=== PATIENT | male | born 1985 | race Asian ===

== ENCOUNTER 2017-10-06 19:18 | Observation (INO) | payer MEDICAID ==
[2017-10-06] MEDS ORDERED: ONDANSETRON 4 MG/2 ML VIAL IVP STA (19:32)
[2017-10-06] MEDS ORDERED: SODIUM CHLORIDE 0.9% 1,000 ML IV ONE ×4 (19:32→22:52)
[2017-10-06 19:48] LABS: BASOPHILS % (AUTO) 1.7 %; EOSINOPHILS % (AUTO) 1.1 %; HGB - HEMOGLOBIN 17.4 g/dL (14.0-18.0); LYMPHOCYTES % (AUTO) 2.6 %; MEAN CORPUSCULAR HEMOGLOBIN 30.2 pg (27.0-31.0); MEAN CORPUSCULAR HGB CONC 33.9 g/dL (32.0-36.0); MEAN PLATELET VOLUME 7.1 fL (7.4-11.4); MONOCYTES % (AUTO) 2.7 %; NEUTROPHILS % (AUTO) 91.9 %; PLT - PLATELET COUNT 294 10^3/uL (130-450); RED BLOOD COUNT 5.76 10^6/uL (4.70-6.10); RED CELL DISTRIBUTION WIDTH 11.9 % (12.0-15.0); WHITE BLOOD COUNT 17.1 x10^3/uL (4.8-10.8)
[2017-10-06 19:51] LABS: VBG BASE EXCESS -3.1 mmol/L (-2 - +2); VBG PCO2 33.9 mmHg (41-51); VBG PH 7.4 (7.31-7.41); VBG PO2 40.8 mmHg (25-47); VBG TOTAL CO2 21.6 mmol/L (24-29)
[2017-10-06 19:56] LABS: KETONES, SERUM (ACETEST) NEGATIVE (NEGATIVE)
[2017-10-06 20:02] LABS: ALBUMIN 4.7 g/dL (3.2-5.5); ALBUMIN/GLOBULIN RATIO 1.5 (1.0-2.2); ALKALINE PHOSPHATASE 103 IU/L (42-121); ALT ALANINE AMINOTRANSFERASE 20 IU/L (10-60); AST ASPARTATE AMINOTRANSFERASE 32 IU/L (10-42); BUN - BLOOD UREA NITROGEN 16 mg/dL (6-20); CALCIUM 9.1 mg/dL (8.5-10.3); CARBON DIOXIDE - CO2 22 mmol/L (21-32); CHLORIDE 100 mmol/L (101-111); CREATININE 0.9 mg/dL (0.6-1.2); GFR - MDRD 99 (>89); GLUCOSE 225 mg/dL (70-100); LIPASE 20 U/L (22-51); SODIUM 135 mmol/L (135-145); TOTAL PROTEIN 7.8 g/dL (6.7-8.2)
[2017-10-06] MEDS ORDERED: MORPHINE 2 MG/ML SYRINGE IVP STA (20:05)
[2017-10-06 20:07] LABS: ABNORMAL LYMPHS % (MANUAL) 0 %
[2017-10-06] MEDS ORDERED: SUCRALFATE 1 GM/10 ML UDC PO STA (20:12)
[2017-10-06] MEDS ORDERED: PHENobarb/HYOSCY/ATROPINE/SCOP 5 ML UDC PO STA (20:12)
[2017-10-06] MEDS ORDERED: FAMOTIDINE 20 MG/50 ML 50 ML IV ONE (20:12)
[2017-10-06] MEDS ORDERED: LIDOCAINE VISCOUS 2% 15 ML UDC MM STA (20:12)
[2017-10-06] MEDS ORDERED: MAG HYDROX/AL HYDROX/SIMETH 30 ML UDC PO STA (20:12)
[2017-10-06 20:14] LABS: BAND NEUTROPHILS % (MANUAL) 9 %; EOSINOPHILS # (MANUAL) 0.5 10^3/uL (0-0.7); LYMPHOCYTES # (MANUAL) 0.9 10^3/uL (1.5-3.5); LYMPHOCYTES % (MANUAL) 1 %; NEUTROPHILS # (MANUAL) 14.7 10^3/uL (1.5-6.6); NEUTROPHILS % (MANUAL) 77 %
[2017-10-06 20:16] LABS: PLATELET ESTIMATE, MANUAL NORMAL (130-450,000) (NORMAL); PLATELET MORPHOLOGY NORMAL APPEARANCE (NORMAL); RBC MORPHOLOGY (MULTIPLE) NORMAL APPEARANCE (NORMAL)
[2017-10-06 21:12] LABS: BILIRUBIN,URINE NEGATIVE (NEGATIVE); GLUCOSE, URINE (UA) NEGATIVE (NEGATIVE); KETONES,URINE (UA) >=80 mg/dL (NEGATIVE); LEUKOCYTE ESTERASE, URINE NEGATIVE (NEGATIVE); NITRITE,URINE NEGATIVE (NEGATIVE); OCCULT BLOOD,URINE NEGATIVE (NEGATIVE); PROTEIN,URINE NEGATIVE (NEGATIVE); UROBILINOGEN,URINE 0.2 (NORMAL) E.U./dL (NORMAL)
[2017-10-06 21:16] LABS: CLARITY,URINE CLEAR (CLEAR)
[2017-10-06] MEDS ORDERED: PROMETHAZINE INJ 25 MG in SODIUM CHLORIDE 0.9% 50 ML IV STA (21:37)
--- NOTE | 2017-10-06 22:52 | ED Physician Documentation ---
History of Present Illness - Stated complaint Stated Complaint: NAUSEA/VOMITING - Chief complaint Chief Complaint: Abd Pain - History obtained from History obtained from: Patient, Family - History of Present Illness Timing: Today Pain level max: 6 Pain level now: 6 Improved by: milanfrara Worsened by: eating - Additonal information Additional information: Patient is a 32-year-old male who presents to the emergency department with Vomiting today. Did not eat anything out of the ordinary yesterday. Had some diarrhea earlier. He is a type I diabetic. Insulin-dependent. No fevers. No blood in the vomit or diarrhea. No recent travel. No antibiotics. Review of Systems Ten Systems: 10 systems reviewed and negative Constitutional: denies: Fever, Chills Ears: denies: Ear pain Nose: denies: Rhinorrhea / runny nose, Congestion Throat: denies: Sore throat Cardiac: denies: Chest pain / pressure Respiratory: denies: Cough GI: reports: Abdominal Pain (epigastric, aching), Nausea, Vomiting, Diarrhea. denies: Hematemesis, Bloody / black stool Skin: denies: Rash Musculoskeletal: denies: Neck pain, Back pain Neurologic: denies: Headache PD PAST MEDICAL HISTORY - Past Medical History Past Medical History: Yes Endocrine/Autoimmune: Type 1 diabetes Psych: Depression, Anxiety - Past Surgical History Past Surgical History: No - Present Medications Home Medications: Ambulatory Orders Medication Instructions Recorded Confirmed Insulin Aspart [Novolog Flexpen] 0 unit SUBQ ACHS 10/06/17 10/06/17 Insulin Glargine [Lantus Solostar] 6 units SQ DAILY 10/06/17 - Allergies Allergies/Adverse Reactions: Allergies Allergy/AdvReac Type Severity Reaction Status Date / Time No Known Drug Allergies Allergy Verified 10/06/17 19:22 - Social History Does the pt smoke?: No Smoking Status: Never smoker Does the pt drink ETOH?: No Does the pt have substance abuse?: No - Immunizations Immunizations are current?: Yes - POLST Patient has POLST: No PD ED PE NORMAL - Vitals Vital signs reviewed: Yes - General General: Alert and oriented X 3, No acute distress - HEENT HEENT: PERRL, Other (dry lips and tongue) - Neck Neck: Supple, no meningeal sign - Cardiac Cardiac: RRR - Respiratory Respiratory: No respiratory distress, Clear bilaterally - Abdomen Abdomen: Soft, Non distended, Other (Mild tenderness palpation epigastric without peritoneal signs.) - Back Back: No CVA TTP, No spinal TTP - Derm Derm: Warm and dry, No rash - Extremities Extremities: No edema, No calf tenderness / cord - Neuro Neuro: Alert and oriented X 3 - Psych Psych: Normal mood, Normal affect Results - Vitals Vitals: Vital Signs - 24 hr 10/06/17 10/06/17 10/06/17 19:20 21:33 23:02 Temperature 36.5 C 37.0 C 36.8 C Heart Rate 100 86 96 Respiratory 16 18 16 Rate Blood Pressure 116/77 100/69 109/73 O2 Saturation 100 98 97 Oxygen O2 Source Room air - Labs Labs: Laboratory Tests 10/06/17 10/06/17 10/06/17 19:28 19:32 19:32 WBC 17.1 H RBC 5.76 Hgb 17.4 Hct 51.2 MCV 89.0 MCH 30.2 MCHC 33.9 RDW 11.9 L Plt Count 294 MPV 7.1 L Neut # Not Reportable Lymph # Not Reportable Lucas # Not Reportable Eos # Not Reportable Baso # Not Reportable Absolute Nucleated RBC Not Reportable Total Counted 100 Band Neuts % (Manual) 9 Reactive Lymphs % (Man) 4 Abnorm Lymph % (Manual) 0 Nucleated RBC % Not Reportable Neutrophils # (Manual) 14.7 H Lymphocytes # (Manual) 0.9 L Monocytes # (Manual) 1.0 Eosinophils # (Manual) 0.5 Basophils # (Manual) 0.0 Manual Slide Review Indicated Platelet Estimate NORMAL (130-450,000) Platelet Morphology NORMAL APPEARANCE RBC Morph Micro Appear NORMAL APPEARANCE VBG pH VBG pCO2 VBG pO2 VBG HCO3 VBG Total CO2 VBG O2 Saturation VBG Base Excess Sodium 135 Potassium 3.8 Chloride 100 L Carbon Dioxide 22 Anion Gap 13.0 BUN 16 Creatinine 0.9 Estimated GFR (MDRD) 99 Glucose 225 H POC Whole Bld Glucose 221 H Calcium 9.1 Total Bilirubin 1.0 AST 32 ALT 20 Alkaline Phosphatase 103 Total Protein 7.8 Albumin 4.7 Globulin 3.1 Albumin/Globulin Ratio 1.5 Lipase 20 L Urine Color Urine Clarity Urine pH Ur Specific [place] Urine Protein Urine Glucose (UA) Urine Ketones Urine Occult Blood Urine Nitrite Urine Bilirubin Urine Urobilinogen Ur Leukocyte Esterase Ur Microscopic Review Urine Culture Comments Serum Ketones NEGATIVE 10/06/17 10/06/17 10/06/17 19:40 21:00 22:58 WBC RBC Hgb Hct MCV MCH MCHC RDW Plt Count MPV Neut # Lymph # Lucas # Eos # Baso # Absolute Nucleated RBC Total Counted Band Neuts % (Manual) Reactive Lymphs % (Man) Abnorm Lymph % (Manual) Nucleated RBC % Neutrophils # (Manual) Lymphocytes # (Manual) Monocytes # (Manual) Eosinophils # (Manual) Basophils # (Manual) Manual Slide Review Platelet Estimate Platelet Morphology RBC Morph Micro Appear VBG pH 7.400 VBG pCO2 33.9 L VBG pO2 40.8 VBG HCO3 20.5 L VBG Total CO2 21.6 L VBG O2 Saturation 82.2 H VBG Base Excess -3.1 L Sodium Potassium Chloride Carbon Dioxide Anion Gap BUN Creatinine Estimated GFR (MDRD) Glucose POC Whole Bld Glucose 160 H Calcium Total Bilirubin AST ALT Alkaline Phosphatase Total Protein Albumin Globulin Albumin/Globulin Ratio Lipase Urine Color YELLOW Urine Clarity CLEAR Urine pH 5.0 Ur Specific [place] >=1.030 H Urine Protein NEGATIVE Urine Glucose (UA) NEGATIVE Urine Ketones >=80 H Urine Occult Blood NEGATIVE Urine Nitrite NEGATIVE Urine Bilirubin NEGATIVE Urine Urobilinogen 0.2 (NORMAL) Ur Leukocyte Esterase NEGATIVE Ur Microscopic Review NOT INDICATED Urine Culture Comments NOT INDICATED Serum Ketones PD MEDICAL DECISION MAKING - ED course Complexity details: reviewed results, re-evaluated patient, considered differential, d/w patient, d/w family ED course: Patient is a 32-year-old male, type I diabetic who presents to the emergency department with vomiting and diarrhea today. Diarrhea has since resolved with the vomiting has continued. Possible gastroparesis? Given Zofran, IV fluids and unable to tolerate p.o. Was then given Phenergan IV and still unable to tolerate p.o. Will place the patient in observation for hydration and reevaluation throughout the night. Discussed the case with Dr. Farmer, hospitalist who accepts. This document was made in part using voice recognition software. While efforts are made to proofread this document, sound alike and grammatical errors may occur. Departure - Departure Disposition: ED Place in Observation Clinical Impression: Hyperglycemia due to type 1 diabetes mellitus Vomiting Qualifiers: Vomiting type: unspecified Vomiting Intractability: intractable Nausea presence : with nausea Qualified Code(s): R11.2 - Nausea with vomiting, unspecified Condition: Stable
[2017-10-06] MEDS ORDERED: METOCLOPRAMIDE 10 MG/2 ML VIAL IVP STA (23:44)
[2017-10-07 00:06] LABS: HB2 TOTAL 19.7 g/dL; HEMOGLOBIN A1C 0.69 g/dL; HEMOGLOBIN A1C % 5.4 % (4.6-6.2)
[2017-10-07] MEDS: INSULIN GLARGINE 300 UNIT/3 ML PEN SUBQ SCH ×2 (00:38→21:16)
--- NOTE | 2017-10-07 00:46 | HISTORY & PHYSICAL EXAMINATION ---
Chief Complaint - Chief Complaint Chief Complaint: Intractable nausea and vomiting History of Present Illness - Admitted From Admitted From:: home - History Obtained From History obtained from: patient, pt's mother, Ed physician - History of Present Illness HPI Comment/Other: Mr. Dell Izaguirre is a very pleasant 32-year-old gentleman who unfortunately has a history of insulin-dependent diabetes which began about 18 months ago. He has been having intractable nausea and vomiting all day and his mother, who is an intensive care nurse here at the hospital, became concerned and brought him into the emergency department. He has been given fluids and anti-emetics but still has intractable nausea and vomiting and so will be admitted to an observation bed, placed on prokinetic agents for presumed diabetic gastroparesis , and we will replace his fluids and electrolytes. History - Past Medical History Endocrine/Autoimmune: reports: Type 1 diabetes Psych: reports: Depression, Anxiety MRSA Hx?: No - Family & Social History Family History: Mother: Alive and Well, Father: Alive and Well, Other family: (GF suicide age 39), CAD, Hyperlipidemia, Hypertension, [place] Living arrangement: At home Living Situation: With family - Substance History Use: Uses substance without health or social issues: NONE Abuse: Recurrent use of substance despite neg consequences: NONE Dependence: Experiences withdrawal or developed tolerances: NONE - POLST Patient has POLST: No POLST Status: Full Code Meds/Allgy - Home Medications Home Medications: Ambulatory Orders Medication Instructions Recorded Confirmed Insulin Aspart [Novolog Flexpen] 0 unit SUBQ ACHS 10/06/17 10/06/17 Insulin Glargine [Lantus Solostar] 6 units SQ DAILY 10/06/17 - Allergies Allergies/Adverse Reactions: Allergies Allergy/AdvReac Type Severity Reaction Status Date / Time No Known Drug Allergies Allergy Verified 10/06/17 19:22 Review of Systems - Constitutional Constitutional: reports: Fatigue, Malaise, Weakness. denies: Fever, Chills - Eyes Eyes: denies: Pain, Amaurosis, Blurred vision, Vision loss, Dipolpia - Ears, Nose & Throat Ears, Nose & Throat: denies: Ear pain, Tinnitus, Vertigo, Nasal discharge, Nosebleeds - Cardiovascular Cariovascular: denies: Irregular heart rate, Palpitations, Chest pain, Edema, Syncope - Respiratory Respiratory: denies: Cough, Sputum production, Wheezing, Snoring, Hemoptysis, Orthopnea - Gastrointestinal Gastrointestinal: reports: Abdominal pain, Diarrhea, Nausea, Vomiting. denies: Rectal bleeding, Matt blood emesis - Genitourinary Genitourinary: denies: Dysuria, Frequency, Urgency, Hematuria - Musculoskeletal Musculoskeletal: denies: Muscle pain, Back pain, Muscle aches, Stiffness - Integumentary Integumentary: denies: Rash, Pruritis, Lesions, Dryness - Neurological Neurological: reports: General weakness. denies: Focal weakness, Headache, Dizziness - Psychiatric Psychiatric: reports: Depression, Anxiety. denies: Suicidal, Delusions, Hallucinations, Homicidal - Endocrine Endocrine: denies: Polyuria, Polydypsia, Polyphagia - Hematologic/Lymphatic Hematologic/Lymphatic: denies: Anemia, Bruising, Petechiae, Bleeding tendencies - All Other Systems All Other Systems: reports: Reviewed and negative Exam - Vital Signs Reviewed Vital Signs: Yes - Physical Exam General Appearance: positive: Alert, Mild distress Eyes Bilateral: positive: Normal inspection, PERRL, EOMI, No lid inflammation, Conjunctivae nml, No scleral icterus ENT: positive: ENT inspection nml, Pharynx nml, No signs of dehydration Neck: positive: Nml inspection, Thyroid nml, No JVD, Trachea midline. negative : Thyromegaly Respiratory: positive: Chest non-tender, No respiratory distress, Breath sounds nml. negative: Wheezes, Rales, Rhonchi Cardiovascular: positive: Regular rate & rhythm, No murmur, No gallop Peripheral Pulses: positive: 2+ Abdomen: positive: No organomegaly, Nml bowel sounds, No distention, Tenderness. negative: Guarding, Rebound, Mass Back: positive: Nml inspection. negative: CVA tenderness (R), CVA tenderness (L ) Skin: positive: Color nml, No rash, Warm, Dry. negative: Cyanosis Extremities: positive: Non-tender, Full ROM, Nml appearance Neurologic/Psychiatric: positive: Oriented x3, CN's nml (2-12), Motor nml, Sensation nml, Mood/affect nml Conclusion/Plan - Problem List (1) Intractable nausea and vomiting Conclusion/Plan: The patient has had intractable nausea and vomiting since early this morning. This is despite the multiple doses of antiemetics the patient has received in the emergency department. We will admit him to an observation bed overnight and start him on Reglan for diabetic gastroparesis. We will replace his fluids and electrolytes and if the patient is able to eat tomorrow we will discharge him home on Reglan. (2) Insulin dependent diabetes mellitus Conclusion/Plan: We will restart the patient on his home insulin regimen with sliding scale for coverage. We will start the patient on Reglan for diabetic gastroparesis. - Lab Results Fish Bones: 10/06/17 19:32 10/06/17 19:32 Core Measures - Anticipated LOS I expect patient to be DC'd or transferred within 96 hours.: Yes - DVT/VTE - Prophylaxis VTE/DVT Device ordered at admit?: Yes
[2017-10-07] MEDS: ONDANSETRON 4 MG/2 ML VIAL IVP PRN ×2 (06:13→14:03)
[2017-10-07] MEDS: SODIUM CHLORIDE FLUSH 0.9% 10 ML SYRINGE IVP PRN ×2 (06:15→14:04)
[2017-10-07] MEDS: SODIUM CHLORIDE FLUSH 0.9% 10 ML SYRINGE IVP SCH ×4 (06:34→23:18)
[2017-10-07] MEDS: METOCLOPRAMIDE 10 MG TABLET PO SCH ×4 (07:39→21:16)
[2017-10-07] MEDS: INSULIN ASPART 300 UNIT/3 ML PEN SUBQ SCH ×4 (08:02→21:08)
[2017-10-07] MEDS: FAMOTIDINE 20 MG/50 ML 50 ML IV SCH ×2 (08:03→20:43)
[2017-10-07] MEDS: POLYETHYLENE GLYCOL 3350 17 GM PACKET PO SCH (08:57)
[2017-10-07] MEDS ORDERED: PROCHLORPERAZINE INJ 10 MG in SODIUM CHLORIDE 0.9% 50 ML IV ONE (09:20)
[2017-10-07] MEDS: GI COCKTAIL 120 ML BOTTLE PO SCH ×4 (09:36→21:14)
[2017-10-07] MEDS ORDERED: PROCHLORPERAZINE 10 MG/2 ML VIAL IVP SCH (10:00)
[2017-10-07] MEDS ORDERED: SODIUM CHLORIDE 0.9% 500 ML IV ONE (15:31)
[2017-10-07] MEDS: NS W/20 MEQ KCL 1,000 ML IV SCH (16:15)
--- NOTE | 2017-10-07 19:06 | PROVIDER PROGRESS NOTE ---
Assessment/Plan - Problem List (1) Intractable nausea and vomiting Assessment/Plan: I added Compazine to Reglan which finally did decrease his emesis. (2) Hypotension Assessment/Plan: This afternoon BP dropped to 78 systolic. Saline bolus and iv fluids started at 125 cc/hr. Pt is warm and dry. BP still low and Pt not taking much oral hydration. Will continue to rehydrate with peripheral iv fluids. (3) Insulin dependent diabetes mellitus Assessment/Plan: Carb controlled diet was decreased to liquids. Pt on s.s. Insulin. - Current Meds Current Meds: Current Medications Generic Name Dose Route Start Last Admin Trade Name Freq PRN Reason Stop Dose Admin Famotidine 50 mls @ 100 mls/hr 10/07/17 09:00 10/07/17 08:35 Pepcid 20 Mg/50 Ml IV Infused BID [facility] Infusion Potassium Chloride/Sodium Chloride 1,000 mls @ 125 mls/hr 10/07/17 16:00 16:15 Normal Saline 0.9% W/20 Meq Kcl IV 125 mls/hr .Q8H [facility] Administration Insulin Aspart 1 - 9 unit 10/07/17 08:00 10/07/17 17:25 Novolog SUBQ Not Given 0800,1200,1700,2100 [facility] Protocol Insulin Glargine 6 unit 10/06/17 23:45 10/07/17 00:38 Lantus Solostar SUBQ 6 unit QPM [facility] Administration Metoclopramide HCl 10 mg 10/07/17 07:00 10/07/17 16:15 Reglan PO 10 mg ACHS [facility] Administration Multi-Ingredient Mouthwash/Gargle 30 ml 10/07/17 10:00 10/07/17 18:16 PO 30 ml Q4H [facility] Administration Ondansetron HCl 4 mg 10/06/17 23:35 10/07/17 14:03 Zofran Inj IVP 4 mg Q6HR PRN Administration Nausea / Vomiting Polyethylene Glycol 17 gm 10/07/17 09:00 10/07/17 08:57 Miralax PO Not Given DAILY [facility] Sodium Chloride 10 ml 10/06/17 23:35 10/07/17 14:04 Normal Saline Flush 0.9% IVP 10 ml PRN PRN Administration NEEDED PER PROVIDER ORDERS Sodium Chloride 10 ml 10/07/17 01:00 10/07/17 15:44 Normal Saline Flush 0.9% IVP 10 ml 0100,0900,1700 [facility] Administration - Lab Result Fish Bone Diagrams: 10/06/17 19:32 10/06/17 19:32 - Additional Planning My Orders: My Active Orders 10/07/17 10:00 Gi Cocktail 30 ml PO Q4H 10/07/17 16:00 Ns W/20 Meq KCl [Normal Saline 0.9% W/20 Meq KCl] 1,000 ml IV 125 mls/hr 10/07/17 Dinner DIET [Full Liquid Diet] [DIET] 10/08/17 05:00 BMP - BASIC METABOLIC PANEL [CHEM] DAILYLAB CBC - COMP BLD CT W/AUTO DIFF [HEME] DAILYLAB MAGNESIUM [CHEM] DAILYLAB Subjective - Subjective Patient Reports: Fatigue, Nausea Nursing Reports: Nausea, Vomitting Objective Vital Signs: Vital Signs - 24 hr 10/07/17 10/07/17 10/07/17 00:45 07:43 14:15 Temperature 37.1 C 36.9 C 36.5 C Heart Rate [ 84 101 H 101 H Brachial] Respiratory 17 18 18 Rate Blood Pressure 113/76 87/47 L 84/47 L [Left Brachial artery] O2 Saturation 98 95 97 10/07/17 10/07/17 16:00 18:06 Temperature 36.7 C Heart Rate [ 78 Brachial] Respiratory 18 Rate Blood Pressure 77/38 L 80/39 L [Left Brachial artery] O2 Saturation 97 Oxygen O2 Source Room air I&O (Last 24 Hrs): Intake and Output Totals x24h 10/05/17 10/06/17 10/07/17 23:59 23:59 23:59 Intake Total 1960 Output Total 550 Balance 1410 General: Other (Lethargic but awakens) HEENT: Mucous membr. moist/pink Neck: Supple, No JVD Neuro: Non Focal Cardiovascular: Regular rate, No murmurs Respiratory: No respiratory distress Abdomen: Soft, Other (Decreased bowel sounds, no guarding) Extremities: No edema - Results Results: Laboratory Results WBC 17.1 x10^3/uL (4.8-10.8) H 10/06/17 19:32 RBC 5.76 10^6/uL (4.70-6.10) 10/06/17 19:32 Hgb 17.4 g/dL (14.0-18.0) 10/06/17 19:32 Hct 51.2 % (42.0-52.0) 10/06/17 19:32 MCV 89.0 fL (80.0-94.0) 10/06/17 19:32 MCH 30.2 pg (27.0-31.0) 10/06/17 19:32 MCHC 33.9 g/dL (32.0-36.0) 10/06/17 19:32 RDW 11.9 % (12.0-15.0) L 10/06/17 19:32 Plt Count 294 10^3/uL (130-450) 10/06/17 19:32 MPV 7.1 fL (7.4-11.4) L 10/06/17 19:32 Neut # Not Reportable 10/06/17 19:32 Lymph # Not Reportable 10/06/17 19:32 [place] # Not Reportable 10/06/17 19:32 Eos # Not Reportable 10/06/17 19:32 Baso # Not Reportable 10/06/17 19:32 Absolute Nucleated RBC Not Reportable 10/06/17 19:32 Total Counted 100 10/06/17 19:32 Band Neuts % (Manual) 9 % (0-10) 10/06/17 19:32 Reactive Lymphs % (Man) 4 % 10/06/17 19:32 Abnorm Lymph % (Manual) 0 % 10/06/17 19:32 Nucleated RBC % Not Reportable 10/06/17 19:32 Neutrophils # (Manual) 14.7 10^3/uL (1.5-6.6) H 10/06/17 19:32 Lymphocytes # (Manual) 0.9 10^3/uL (1.5-3.5) L 10/06/17 19:32 Monocytes # (Manual) 1.0 10^3/uL (0.0-1.0) 10/06/17 19:32 Eosinophils # (Manual) 0.5 10^3/uL (0-0.7) 10/06/17 19:32 Basophils # (Manual) 0.0 10^3/uL (0-0.1) 10/06/17 19:32 Manual Slide Review Indicated 10/06/17 19:32 Platelet Estimate NORMAL (130-450,000) (NORMAL) 10/06/17 19:32 Platelet Morphology NORMAL APPEARANCE (NORMAL) 10/06/17 19:32 RBC Morph Micro Appear NORMAL APPEARANCE (NORMAL) 10/06/17 19:32 VBG pH 7.400 (7.31-7.41) 10/06/17 19:40 VBG pCO2 33.9 mmHg (41-51) L 10/06/17 19:40 VBG pO2 40.8 mmHg (25-47) 10/06/17 19:40 VBG HCO3 20.5 mmol/L (23-28) L 10/06/17 19:40 VBG Total CO2 21.6 mmol/L (24-29) L 10/06/17 19:40 VBG O2 Saturation 82.2 % (60-80) H 10/06/17 19:40 VBG Base Excess -3.1 mmol/L (-2 - +2) L 10/06/17 19:40 Sodium 135 mmol/L (135-145) 10/06/17 19:32 Potassium 3.8 mmol/L (3.5-5.0) 10/06/17 19:32 Chloride 100 mmol/L (101-111) L 10/06/17 19:32 Carbon Dioxide 22 mmol/L (21-32) 10/06/17 19:32 Anion Gap 13.0 (6-13) 10/06/17 19:32 BUN 16 mg/dL (6-20) 10/06/17 19:32 Creatinine 0.9 mg/dL (0.6-1.2) 10/06/17 19:32 Estimated GFR (MDRD) 99 (>89) 10/06/17 19:32 Glucose 225 mg/dL (70-100) H 10/06/17 19:32 POC Whole Bld Glucose 112 mg/dL (70 - 100) H 10/07/17 17:13 Glycated Hemoglobin 5.4 % (4.6-6.2) 10/06/17 19:32 Estim Average Glucose 108 (70-100) H 10/06/17 19:32 Calcium 9.1 mg/dL (8.5-10.3) 10/06/17 19:32 Total Bilirubin 1.0 mg/dL (0.2-1.0) 10/06/17 19:32 AST 32 IU/L (10-42) 10/06/17 19:32 ALT 20 IU/L (10-60) 10/06/17 19:32 Alkaline Phosphatase 103 IU/L (42-121) 10/06/17 19:32 Total Protein 7.8 g/dL (6.7-8.2) 10/06/17 19:32 Albumin 4.7 g/dL (3.2-5.5) 10/06/17 19:32 Globulin 3.1 g/dL (2.1-4.2) 10/06/17 19:32 Albumin/Globulin Ratio 1.5 (1.0-2.2) 10/06/17 19:32 Lipase 20 U/L (22-51) L 10/06/17 19:32 Urine Color YELLOW 10/06/17 21:00 Urine Clarity CLEAR (CLEAR) 10/06/17 21:00 Urine pH 5.0 PH (5.0-7.5) 10/06/17 21:00 Ur Specific [place] >=1.030 (1.002-1.030) H 10/06/17 21:00 Urine Protein NEGATIVE mg/dL (NEGATIVE) 10/06/17 21:00 Urine Glucose (UA) NEGATIVE mg/dL (NEGATIVE) 10/06/17 21:00 Urine Ketones >=80 mg/dL (NEGATIVE) H 10/06/17 21:00 Urine Occult Blood NEGATIVE (NEGATIVE) 10/06/17 21:00 Urine Nitrite NEGATIVE (NEGATIVE) 10/06/17 21:00 Urine Bilirubin NEGATIVE (NEGATIVE) 10/06/17 21:00 Urine Urobilinogen 0.2 (NORMAL) E.U./dL (NORMAL) 10/06/17 21:00 Ur Leukocyte Esterase NEGATIVE (NEGATIVE) 10/06/17 21:00 Ur Microscopic Review NOT INDICATED 10/06/17 21:00 Urine Culture Comments NOT INDICATED 10/06/17 21:00 Serum Ketones NEGATIVE (NEGATIVE) 10/06/17 19:32
[2017-10-08] MEDS: NS W/20 MEQ KCL 1,000 ML IV SCH ×2 (00:52→08:53)
[2017-10-08] MEDS: GI COCKTAIL 120 ML BOTTLE PO SCH ×3 (02:09→09:57)
[2017-10-08] MEDS: METOCLOPRAMIDE 10 MG TABLET PO SCH (06:07)
[2017-10-08 06:20] LABS: BASOPHILS % (AUTO) 0.2 %; EOSINOPHILS # (AUTO) 0.4 10^3/uL (0.0-0.7); EOSINOPHILS % (AUTO) 6.1 %; HGB - HEMOGLOBIN 13.5 g/dL (14.0-18.0); LYMPHOCYTES # (AUTO) 1.9 10^3/uL (1.5-3.5); LYMPHOCYTES % (AUTO) 25.8 %; MEAN CORPUSCULAR HEMOGLOBIN 30.4 pg (27.0-31.0); MEAN CORPUSCULAR HGB CONC 33.4 g/dL (32.0-36.0); MEAN PLATELET VOLUME 6.8 fL (7.4-11.4); MONOCYTES # (AUTO) 0.5 10^3/uL (0.0-1.0); MONOCYTES % (AUTO) 6.8 %; NEUTROPHILS # (AUTO) 4.5 10^3/uL (1.5-6.6); NEUTROPHILS % (AUTO) 61.1 %; PLT - PLATELET COUNT 200 10^3/uL (130-450); RED BLOOD COUNT 4.44 10^6/uL (4.70-6.10); WHITE BLOOD COUNT 7.3 x10^3/uL (4.8-10.8)
[2017-10-08 06:31] LABS: CALCIUM 7.9 mg/dL (8.5-10.3); CREATININE 0.8 mg/dL (0.6-1.2); MAGNESIUM 2.1 mg/dL (1.7-2.8)
[2017-10-08] MEDS: SODIUM CHLORIDE FLUSH 0.9% 10 ML SYRINGE IVP SCH ×2 (07:27→07:28)
[2017-10-08] MEDS: POLYETHYLENE GLYCOL 3350 17 GM PACKET PO SCH (07:27)
[2017-10-08] MEDS: INSULIN ASPART 300 UNIT/3 ML PEN SUBQ SCH (07:39)
[2017-10-08] MEDS: FAMOTIDINE 20 MG/50 ML 50 ML IV SCH (08:53)
--- NOTE | 2017-10-08 09:24 | Discharge Plan ---
Discharge Plan Disposition: Home, Self Care Condition: Fair Prescriptions: Metoclopramide [Reglan] 10 mg PO ACHS PRN #30 tablet PRN Reason: Nausea / Vomiting Diet: Diabetic Activity Restrictions: No Restrictions Shower Restrictions: No Driving Restrictions: No Weight Bearing: Full Weight Additional Instructions or Follow Up instructions: You presented with nausea and vomiting. You likely had gastroenteritis or gastritis due to recent stress in your life. You have now improved. You can go home with oral reglan as needed. Please make sure to drink plenty of fluids. No Smoking: If you smoke, Please STOP! Call for help.
[2017-10-08 10:03] VITALS: BP 101/63
--- NOTE | 2017-10-08 15:05 | DISCHARGE SUMMARY ---
Discharge Summary Admit Date: 10/06/17 Discharge Date: 10/08/17 Discharging Provider: Juvenal Camargo MD Primary Care Provider: None Code Status: Attempt Resuscitation Condition at Discharge: Fair Discharge Disposition: 01 Home, Self Care - DIAGNOSES Admission Diagnoses: 1. Intractable nausea and vomiting 2. Insulin-dependent diabetes mellitus Discharge Diagnoses with Status of Each Condition: 1. Intractable nausea and vomiting: Stable 2. Hypotension: Stable 3. Insulin-dependent diabetes mellitus: Stable - HPI History of Present Illness: Mr. Dell Izaguirre is a very pleasant 32-year-old gentleman who unfortunately has a history of insulin-dependent diabetes which began about 18 months ago. He has been having intractable nausea and vomiting all day and his mother, who is an intensive care nurse here at the hospital, became concerned and brought him into the emergency department. He has been given fluids and anti-emetics but still has intractable nausea and vomiting and so will be admitted to an observation bed, placed on prokinetic agents for presumed diabetic gastroparesis , and we will replace his fluids and electrolytes. - HOSPITAL COURSE Hospital Course: The patient was hospitalized after developing intractable nausea and vomiting. The patient received multiple doses of antiemetics in the emergency department however he did not have resolution of his symptoms and therefore was placed in observation. The patient was started on Reglan and Zofran. The patient was also given IV fluids his intractable nausea and vomiting did improve over the next 24 hours. The patient however developed hypotension while he was hospitalized with blood pressures in the 80s systolic. According to the patient he normally runs at around 100 systolic. It was thought that this was due to his excessive loss of fluid from his intractable nausea and vomiting. The patient was given IV fluid boluses and placed on IV fluids through the day. The patient had improvement in his blood pressure as it was 101/63 by the time of discharge. The patient also had resolution of his intractable nausea and vomiting. It is not completely clear at this time what the cause of his intractable nausea vomiting was. There is some suspicion of the possibility of diabetic gastroparesis however the patient did not have any gastric emptying study to confirm this diagnosis. The patient also was under a great deal of stress as she had recently had a in the family and could have had gastritis and then developed intractable nausea. The patient also could have had a viral gastroenteritis. The patient was discharged in stable condition and he was given a prescription for Reglan and Zofran. The patient will follow up as needed with his primary care physician. The patient's diabetes was well- controlled while he was hospitalized. His hemoglobin A1c is 7.9 therefore gastroparesis is unlikely. - ALLERGIES Allergies/Adverse Reactions: Allergies Allergy/AdvReac Type Severity Reaction Status Date / Time No Known Drug Allergies Allergy Verified 10/06/17 19:22 - MEDICATIONS Home Medications: Ambulatory Orders Medication Instructions Recorded Confirmed Insulin Glargine [Lantus Solostar] 6 units SQ QPM 10/06/17 10/07/17 Escitalopram [Lexapro] 10 mg PO DAILY 10/07/17 10/07/17 Insulin Lispro [Humalog Kwikpen 0 unit SUBQ ACHS 10/07/17 10/07/17 U-100] Metoclopramide [Reglan] 10 mg PO ACHS PRN #30 tablet 10/08/17 - PHYSICAL EXAM AT DISCHARGE General Appearance: positive: No acute distress, Alert Eyes Bilateral: positive: Normal inspection, PERRL, EOMI, No lid inflammation, Conjunctivae nml, No scleral icterus ENT: positive: ENT inspection nml, Pharynx nml, No signs of dehydration. negative: Purulent nasal drainage, Pharyngeal erythema, Oral lesions Neck: positive: Nml inspection, Thyroid nml, No JVD, Trachea midline. negative : Thyromegaly, Lymphadenopathy (R), Lymphadenopathy (L), Stiff neck, Carotid bruit, Tracheal deviation Respiratory: positive: Chest non-tender, No respiratory distress, Breath sounds nml. negative: Wheezes, Rales, Rhonchi Cardiovascular: positive: Regular rate & rhythm, No murmur, No gallop Peripheral Pulses: positive: 2+ Abdomen: positive: Non-tender, No organomegaly, Nml bowel sounds, No distention. negative: Guarding, Rebound, Hepatomegaly Back: positive: Nml inspection. negative: CVA tenderness (R), CVA tenderness (L ) Skin: positive: Color nml, No rash, Warm. negative: Cyanosis, Diaphoresis, Pallor Extremities: positive: Non-tender, Full ROM, Nml appearance, No pedal edema Neurologic/Psychiatric: positive: Oriented x3, CN's nml (2-12), Motor nml, Sensation nml - LABS Result Diagrams: 10/08/17 06:08 10/08/17 06:08 Other Lab Results: Laboratory Results WBC 7.3 x10^3/uL (4.8-10.8) 10/08/17 06:08 RBC 4.44 10^6/uL (4.70-6.10) L 10/08/17 06:08 Hgb 13.5 g/dL (14.0-18.0) L 10/08/17 06:08 Hct 40.4 % (42.0-52.0) L 10/08/17 06:08 MCV 91.0 fL (80.0-94.0) 10/08/17 06:08 MCH 30.4 pg (27.0-31.0) 10/08/17 06:08 MCHC 33.4 g/dL (32.0-36.0) 10/08/17 06:08 RDW 12.0 % (12.0-15.0) 10/08/17 06:08 Plt Count 200 10^3/uL (130-450) 10/08/17 06:08 MPV 6.8 fL (7.4-11.4) L 10/08/17 06:08 Neut # 4.5 10^3/uL (1.5-6.6) 10/08/17 06:08 Lymph # 1.9 10^3/uL (1.5-3.5) 10/08/17 06:08 Deuel # 0.5 10^3/uL (0.0-1.0) 10/08/17 06:08 Eos # 0.4 10^3/uL (0.0-0.7) 10/08/17 06:08 Baso # 0.0 10^3/uL (0.0-0.1) 10/08/17 06:08 Absolute Nucleated RBC 0.00 x10^3/uL 10/08/17 06:08 Total Counted 100 10/06/17 19:32 Band Neuts % (Manual) 9 % (0-10) 10/06/17 19:32 Reactive Lymphs % (Man) 4 % 10/06/17 19:32 Abnorm Lymph % (Manual) 0 % 10/06/17 19:32 Nucleated RBC % 0.0 /100WBC 10/08/17 06:08 Neutrophils # (Manual) 14.7 10^3/uL (1.5-6.6) H 10/06/17 19:32 Lymphocytes # (Manual) 0.9 10^3/uL (1.5-3.5) L 10/06/17 19:32 Monocytes # (Manual) 1.0 10^3/uL (0.0-1.0) 10/06/17 19:32 Eosinophils # (Manual) 0.5 10^3/uL (0-0.7) 10/06/17 19:32 Basophils # (Manual) 0.0 10^3/uL (0-0.1) 10/06/17 19:32 Manual Slide Review Indicated 10/06/17: Platelet Estimate NORMAL (130-450,000) (NORMAL) 10/06/17 19:32 Platelet Morphology NORMAL APPEARANCE (NORMAL) 10/06/17 19:32 RBC Morph Micro Appear NORMAL APPEARANCE (NORMAL) 10/06/17 19:32 VBG pH 7.400 (7.31-7.41) 10/06/17 19:40 VBG pCO2 33.9 mmHg (41-51) L 10/06/17 19:40 VBG pO2 40.8 mmHg (25-47) 10/06/17 19:40 VBG HCO3 20.5 mmol/L (23-28) L 10/06/17 19:40 VBG Total CO2 21.6 mmol/L (24-29) L 10/06/17 19:40 VBG O2 Saturation 82.2 % (60-80) H 10/06/17 19:40 VBG Base Excess -3.1 mmol/L (-2 - +2) L 10/06/17 19:40 Sodium 139 mmol/L (135-145) 10/08/17 06:08 Potassium 3.9 mmol/L (3.5-5.0) 10/08/17 06:08 Chloride 108 mmol/L (101-111) 10/08/17 06:08 Carbon Dioxide 26 mmol/L (21-32) 10/08/17 06:08 Anion Gap 5.0 (6-13) L 10/08/17 06:08 BUN 11 mg/dL (6-20) 10/08/17 06:08 Creatinine 0.8 mg/dL (0.6-1.2) 10/08/17 06:08 Estimated GFR (MDRD) 114 (>89) 10/08/17 06:08 Glucose 81 mg/dL (70-100) 10/08/17 06:08 POC Whole Bld Glucose 76 mg/dL (70 - 100) 10/08/17 07:38 Glycated Hemoglobin 5.4 % (4.6-6.2) 10/06/17 19:32 Estim Average Glucose 108 (70-100) H 10/06/17 19:32 Calcium 7.9 mg/dL (8.5-10.3) L 10/08/17 06:08 Magnesium 2.1 mg/dL (1.7-2.8) 10/08/17 06:08 Total Bilirubin 1.0 mg/dL (0.2-1.0) 10/06/17 19:32 AST 32 IU/L (10-42) 10/06/17 19:32 ALT 20 IU/L (10-60) 10/06/17 19:32 Alkaline Phosphatase 103 IU/L (42-121) 10/06/17 19:32 Total Protein 7.8 g/dL (6.7-8.2) 10/06/17 19:32 Albumin 4.7 g/dL (3.2-5.5) 10/06/17 19:32 Globulin 3.1 g/dL (2.1-4.2) 10/06/17 19:32 Albumin/Globulin Ratio 1.5 (1.0-2.2) 10/06/17 19:32 Lipase 20 U/L (22-51) L 10/06/17 19:32 Urine Color YELLOW 10/06/17 21:00 Urine Clarity CLEAR (CLEAR) 10/06/17 21:00 Urine pH 5.0 PH (5.0-7.5) 10/06/17 21:00 Ur Specific [place] >=1.030 (1.002-1.030) H 10/06/17 21:00 Urine Protein NEGATIVE mg/dL (NEGATIVE) 10/06/17 21:00 Urine Glucose (UA) NEGATIVE mg/dL (NEGATIVE) 10/06/17 21:00 Urine Ketones >=80 mg/dL (NEGATIVE) H 10/06/17 21:00 Urine Occult Blood NEGATIVE (NEGATIVE) 10/06/17 21:00 Urine Nitrite NEGATIVE (NEGATIVE) 10/06/17 21:00 Urine Bilirubin NEGATIVE (NEGATIVE) 10/06/17 21:00 Urine Urobilinogen 0.2 (NORMAL) E.U./dL (NORMAL) 10/06/17 21:00 Ur Leukocyte Esterase NEGATIVE (NEGATIVE) 10/06/17 21:00 Ur Microscopic Review NOT INDICATED 10/06/17 21:00 Urine Culture Comments NOT INDICATED 10/06/17 21:00 Serum Ketones NEGATIVE (NEGATIVE) 10/06/17 19:32 - FOLLOW UP Follow Up: Patient will follow up with his primary care physician if he has persistent nausea and vomiting for evaluation for diabetic gastroparesis. He will also continue to follow with his PCP for management of his diabetes. - TIME SPENT Time Spent in Discharge (Minutes): 35
== END 2017-10-08 10:18 | disposition home or self-care (01) ==
LOC: ED 19:18 → OBS 23:35
PROVIDERS: ADMIT Hospitalist; ATTEND Internal Medicine
DX: R11.2 Nausea with vomiting, unspecified (principal); I95.9 Hypotension, unspecified; R10.816 Epigastric abdominal tenderness; R10.13 Epigastric pain; R19.7 Diarrhea, unspecified; E10.65 Type 1 diabetes mellitus with hyperglycemia; F32.9 Major depressive disorder, single episode, unspecified; F41.9 Anxiety disorder, unspecified; Z79.4 Long term (current) use of insulin; Z63.4 Disappearance and death of family member
CPT/HCPCS: 36415; 80048; 80053; 81003; 82009; 82803; 83036; 83690; 83735; 85025; 96361; 96365; 96366; 96367; 96375; 96376; 99284; 99285; A9270; G0378; J2270; J2765; J7040; 81001; 87086

== ENCOUNTER 2019-01-13 08:00 | Outpatient (CLI) | payer MEDICAID ==
[2019-01-13 12:32] LABS: CREATININE,URINE 128.2 mg/dL; MICROALBUM/CREATININE RATIO,UR 3.1 ug/mg (<30.0); MICROALBUMIN,URINE 0.4 mg/dL (0-300.0)
[2019-01-13 12:50] LABS: CALCIUM 9.6 mg/dL (8.5-10.3); CREATININE 0.7 mg/dL (0.6-1.2)
[2019-01-13 13:19] LABS: HB2 TOTAL 16.7 g/dL; HEMOGLOBIN A1C 0.65 g/dL; HEMOGLOBIN A1C % 5.7 % (4.6-6.2)
== END 2019-01-13 23:59 | disposition home or self-care (01) ==
LOC: LAB.N 08:00
PROVIDERS: ATTEND Family Medicine
DX: E11.9 Type 2 diabetes mellitus without complications (principal)
CPT/HCPCS: 36415; 80048; 82043; 82570; 83036

== ENCOUNTER 2019-07-07 08:00 | Outpatient (CLI) | payer MEDICAID ==
[2019-07-07 12:35] LABS: HB2 TOTAL 16.3 g/dL; HEMOGLOBIN A1C 0.71 g/dL; HEMOGLOBIN A1C % 6.1 % (4.6-6.2)
== END 2019-07-07 23:59 | disposition home or self-care (01) ==
LOC: LAB.N 08:00
PROVIDERS: ATTEND Family Medicine
DX: E10.9 Type 1 diabetes mellitus without complications (principal)
CPT/HCPCS: 36415; 83036

== ENCOUNTER 2020-02-02 15:21 | Outpatient (CLI) | payer MEDICAID ==
[2020-02-02 18:27] LABS: CREATININE,URINE 276.6 mg/dL; MICROALBUM/CREATININE RATIO,UR 2.9 ug/mg (<30.0); MICROALBUMIN,URINE 0.8 mg/dL (0-300.0)
[2020-02-02 18:39] LABS: CALCIUM 9.6 mg/dL (8.5-10.3); CREATININE 0.8 mg/dL (0.6-1.2)
[2020-02-02 18:54] LABS: HEMOGLOBIN A1c% 5.9 % (4.27-6.07)
== END 2020-02-02 23:59 | disposition home or self-care (01) ==
LOC: LAB.WCP 15:21
PROVIDERS: ATTEND Family Medicine
DX: E11.9 Type 2 diabetes mellitus without complications (principal)
CPT/HCPCS: 36415; 80048; 82043; 82570; 83036

== ENCOUNTER 2020-07-11 13:42 | Outpatient (CLI) | payer MEDICAID ==
[2020-07-11 17:40] LABS: BASOPHILS % (AUTO) 0.8 %; EOSINOPHILS # (AUTO) 0.2 10^3/uL (0.0-0.7); EOSINOPHILS % (AUTO) 4.9 %; HGB - HEMOGLOBIN 16.9 g/dL (14.0-18.0); LYMPHOCYTES % (AUTO) 21.3 %; MEAN CORPUSCULAR HGB CONC 33.9 g/dL (32.0-36.0); MEAN CORPUSCULAR VOLUME 91.4 fL (80.0-94.0); MEAN PLATELET VOLUME 9.1 fL (7.4-11.4); MONOCYTES # (AUTO) 0.3 10^3/uL (0.0-1.0); MONOCYTES % (AUTO) 6.1 %; NEUTROPHILS # (AUTO) 3.2 10^3/uL (1.5-6.6); NEUTROPHILS % (AUTO) 66.7 %; PLT - PLATELET COUNT 270 10^3/uL (130-450); RED BLOOD COUNT 5.45 10^6/uL (4.70-6.10); RED CELL DISTRIBUTION WIDTH 11.9 % (12.0-15.0); WHITE BLOOD COUNT 4.7 x10^3/uL (4.8-10.8)
[2020-07-11 18:03] LABS: ALBUMIN 4.6 g/dL (3.2-5.5); ALBUMIN/GLOBULIN RATIO 1.6 (1.0-2.2); ALKALINE PHOSPHATASE 70 IU/L (42-121); ALT ALANINE AMINOTRANSFERASE 32 IU/L (10-60); AST ASPARTATE AMINOTRANSFERASE 37 IU/L (10-42); BILIRUBIN,TOTAL 0.7 mg/dL (0.2-1.0); BUN - BLOOD UREA NITROGEN 23 mg/dL (6-20); CALCIUM 9.3 mg/dL (8.5-10.3); CARBON DIOXIDE - CO2 27 mmol/L (21-32); CHLORIDE 101 mmol/L (101-111); CHOL/HDL RATIO 3.7 (<5.0); CHOLESTEROL 143 mg/dL; CREATININE 0.8 mg/dL (0.6-1.2); GLUCOSE 177 mg/dL (70-100); HDL CHOLESTEROL 39 mg/dL; LDL CHOLESTEROL,CALCULATED 80 mg/dL; LDL/HDL RATIO 2.1 (<3.6); TOTAL PROTEIN 7.4 g/dL (6.7-8.2); VLDL CHOLESTEROL 24 mg/dL
[2020-07-11 20:01] LABS: HEMOGLOBIN A1c% 5.9 % (4.27-6.07)
== END 2020-07-11 13:43 | disposition home or self-care (01) ==
LOC: LAB.N 13:42
PROVIDERS: ATTEND Nurse Practitioner Family
DX: E10.9 Type 1 diabetes mellitus without complications (principal)
CPT/HCPCS: 36415; 80050; 80061; 83036; 83721

== ENCOUNTER 2021-03-21 16:31 | Outpatient (CLI) | payer MEDICAID ==
[2021-03-21 20:38] LABS: ESTIMATED AVERAGE GLUCOSE 143 mg/dL (70-100); HEMOGLOBIN A1c% 6.6 % (4.27-6.07)
[2021-03-21 20:44] LABS: ALBUMIN 4.5 g/dL (3.2-5.5); BILIRUBIN,TOTAL 0.5 mg/dL (0.2-1.0); CALCIUM 8.9 mg/dL (8.5-10.3); CREATININE 1.1 mg/dL (0.6-1.2); POTASSIUM 4.5 mmol/L (3.5-5.0); TOTAL PROTEIN 6.8 g/dL (6.7-8.2)
== END 2021-03-21 16:32 | disposition home or self-care (01) ==
LOC: LAB.N 16:31
PROVIDERS: ATTEND Family Medicine
DX: E10.9 Type 1 diabetes mellitus without complications (principal)
CPT/HCPCS: 36415; 80053; 82043; 83036

== ENCOUNTER 2021-11-24 11:29 | Outpatient (CLI) | payer MEDICAID ==
[2021-11-24 17:34] LABS: BASOPHILS % (AUTO) 0.7 %; EOSINOPHILS # (AUTO) 0.4 10^3/uL (0.0-0.7); EOSINOPHILS % (AUTO) 6.2 %; HCT - HEMATOCRIT 45.2 % (42.0-52.0); HGB - HEMOGLOBIN 15.7 g/dL (14.0-18.0); LYMPHOCYTES # (AUTO) 1.9 10^3/uL (1.5-3.5); MEAN CORPUSCULAR HEMOGLOBIN 30.7 pg (27.0-31.0); MEAN CORPUSCULAR HGB CONC 34.7 g/dL (32.0-36.0); MEAN CORPUSCULAR VOLUME 88.5 fL (80.0-94.0); MEAN PLATELET VOLUME 9.4 fL (7.4-11.4); MONOCYTES # (AUTO) 0.5 10^3/uL (0.0-1.0); MONOCYTES % (AUTO) 7.9 %; PLT - PLATELET COUNT 292 10^3/uL (130-450); RED BLOOD COUNT 5.11 10^6/uL (4.70-6.10); RED CELL DISTRIBUTION WIDTH 11.6 % (12.0-15.0); WHITE BLOOD COUNT 5.8 x10^3/uL (4.8-10.8)
[2021-11-24 18:54] LABS: ALBUMIN 4.4 g/dL (3.2-5.5); ALBUMIN/GLOBULIN RATIO 1.5 (1.0-2.2); ALKALINE PHOSPHATASE 66 IU/L (42-121); ALT ALANINE AMINOTRANSFERASE 71 IU/L (10-60); AST ASPARTATE AMINOTRANSFERASE 56 IU/L (10-42); BILIRUBIN,TOTAL 0.9 mg/dL (0.2-1.0); BUN - BLOOD UREA NITROGEN 14 mg/dL (6-20); CALCIUM 9.7 mg/dL (8.5-10.3); CARBON DIOXIDE - CO2 28 mmol/L (21-32); CHLORIDE 101 mmol/L (101-111); CHOL/HDL RATIO 3.1 (<5.0); CHOLESTEROL 145 mg/dL; CREATININE 0.9 mg/dL (0.6-1.2); GFR - MDRD 97 (>89); GLUCOSE 170 mg/dL (70-100); HDL CHOLESTEROL 47 mg/dL; LDL CHOLESTEROL,CALCULATED 76 mg/dL; LDL/HDL RATIO 1.6 (<3.6); POTASSIUM 3.9 mmol/L (3.5-5.0); SODIUM 138 mmol/L (135-145); TOTAL PROTEIN 7.4 g/dL (6.7-8.2); TRIGLYCERIDES 111 mg/dL; VLDL CHOLESTEROL 22 mg/dL
[2021-11-24 19:14] LABS: CREATININE,URINE 280.3 mg/dL; MICROALBUM/CREATININE RATIO,UR 4.6 ug/mg (<30.0); MICROALBUMIN,URINE 1.3 mg/dL (0-300.0)
[2021-11-24 19:21] LABS: THYROID STIMULATING HORMONE 2.61 uIU/mL (0.34-5.60)
[2021-11-24 22:15] LABS: ESTIMATED AVERAGE GLUCOSE 151 mg/dL (70-100); HEMOGLOBIN A1c% 6.9 % (4.27-6.07)
== END 2021-11-24 11:30 | disposition home or self-care (01) ==
LOC: LAB.N 11:29
PROVIDERS: ATTEND Nurse Practitioner
DX: E10.9 Type 1 diabetes mellitus without complications (principal); Z13.220 Encounter for screening for lipoid disorders; F41.9 Anxiety disorder, unspecified; F32.A Depression, unspecified
CPT/HCPCS: 36415; 80050; 80061; 82043; 82570; 83036; 83721

== ENCOUNTER 2022-04-03 10:57 | Outpatient (CLI) | payer MEDICAID ==
[2022-04-03 17:44] LABS: BASOPHILS % (AUTO) 0.8 %; EOSINOPHILS # (AUTO) 0.2 10^3/uL (0.0-0.7); EOSINOPHILS % (AUTO) 4.1 %; HCT - HEMATOCRIT 49.3 % (42.0-52.0); LYMPHOCYTES # (AUTO) 1.3 10^3/uL (1.5-3.5); LYMPHOCYTES % (AUTO) 27.1 %; MEAN CORPUSCULAR HEMOGLOBIN 30.7 pg (27.0-31.0); MEAN CORPUSCULAR HGB CONC 34.5 g/dL (32.0-36.0); MEAN PLATELET VOLUME 9.3 fL (7.4-11.4); MONOCYTES # (AUTO) 0.3 10^3/uL (0.0-1.0); MONOCYTES % (AUTO) 6.4 %; NEUTROPHILS % (AUTO) 61.6 %; PLT - PLATELET COUNT 294 10^3/uL (130-450); RED BLOOD COUNT 5.54 10^6/uL (4.70-6.10); RED CELL DISTRIBUTION WIDTH 11.6 % (12.0-15.0); WHITE BLOOD COUNT 4.8 x10^3/uL (4.8-10.8)
[2022-04-03 17:57] LABS: CREATININE,URINE 237.7 mg/dL; MICROALBUM/CREATININE RATIO,UR 2.1 ug/mg (<30.0); MICROALBUMIN,URINE 0.5 mg/dL (0-300.0)
[2022-04-03 18:02] LABS: ALBUMIN 4.8 g/dL (3.2-5.5); ALBUMIN/GLOBULIN RATIO 1.5 (1.0-2.2); ALKALINE PHOSPHATASE 77 IU/L (42-121); ALT ALANINE AMINOTRANSFERASE 28 IU/L (10-60); AST ASPARTATE AMINOTRANSFERASE 33 IU/L (10-42); BILIRUBIN,TOTAL 1.2 mg/dL (0.2-1.0); BUN - BLOOD UREA NITROGEN 11 mg/dL (6-20); CALCIUM 9.5 mg/dL (8.5-10.3); CARBON DIOXIDE - CO2 28 mmol/L (21-32); CHLORIDE 98 mmol/L (101-111); CHOL/HDL RATIO 3.1 (<5.0); CHOLESTEROL 132 mg/dL; CREATININE 0.9 mg/dL (0.6-1.2); GFR - MDRD 97 (>89); GLUCOSE 172 mg/dL (70-100); HDL CHOLESTEROL 43 mg/dL; LDL CHOLESTEROL,CALCULATED 77 mg/dL; LDL/HDL RATIO 1.8 (<3.6); POTASSIUM 4.1 mmol/L (3.5-5.0); SODIUM 135 mmol/L (135-145); TRIGLYCERIDES 61 mg/dL; VLDL CHOLESTEROL 12 mg/dL
[2022-04-03 18:10] LABS: THYROID STIMULATING HORMONE 1.83 uIU/mL (0.34-5.60)
[2022-04-03 22:17] LABS: ESTIMATED AVERAGE GLUCOSE 143 mg/dL (70-100); HEMOGLOBIN A1c% 6.6 % (4.27-6.07)
== END 2022-04-03 10:58 | disposition home or self-care (01) ==
LOC: LAB.N 10:57
PROVIDERS: ATTEND Nurse Practitioner
DX: E10.9 Type 1 diabetes mellitus without complications (principal)
CPT/HCPCS: 36415; 80050; 80061; 82043; 82570; 83036; 83721

== ENCOUNTER 2023-09-05 10:00 | Outpatient (CLI) | payer MEDICAID ==
[2023-09-05 11:53] LABS: EOSINOPHILS # (AUTO) 0.3 10^3/uL (0.0-0.7); HCT - HEMATOCRIT 46.2 % (42.0-52.0); HGB - HEMOGLOBIN 16.1 g/dL (14.0-18.0); LYMPHOCYTES # (AUTO) 1.3 10^3/uL (1.5-3.5); LYMPHOCYTES % (AUTO) 33.4 %; MEAN CORPUSCULAR HEMOGLOBIN 31.4 pg (27.0-31.0); MEAN CORPUSCULAR HGB CONC 34.8 g/dL (32.0-36.0); MEAN CORPUSCULAR VOLUME 90.1 fL (80.0-94.0); MEAN PLATELET VOLUME 9.4 fL (7.4-11.4); MONOCYTES # (AUTO) 0.3 10^3/uL (0.0-1.0); NEUTROPHILS # (AUTO) 2.1 10^3/uL (1.5-6.6); NEUTROPHILS % (AUTO) 51.4 %; PLT - PLATELET COUNT 272 10^3/uL (130-450); RED BLOOD COUNT 5.13 10^6/uL (4.70-6.10); RED CELL DISTRIBUTION WIDTH 11.6 % (12.0-15.0)
[2023-09-05 12:25] LABS: ALBUMIN 4.6 g/dL (3.2-5.5); ALBUMIN/GLOBULIN RATIO 1.7 (1.0-2.2); ALKALINE PHOSPHATASE 89 IU/L (42-121); ALT ALANINE AMINOTRANSFERASE 17 IU/L (10-60); AST ASPARTATE AMINOTRANSFERASE 24 IU/L (10-42); BILIRUBIN,TOTAL 0.7 mg/dL (0.2-1.0); BUN - BLOOD UREA NITROGEN 13 mg/dL (6-20); CALCIUM 9.9 mg/dL (8.5-10.3); CARBON DIOXIDE - CO2 30 mmol/L (21-32); CHLORIDE 101 mmol/L (101-111); CHOL/HDL RATIO 2.6 (<5.0); CHOLESTEROL 132 mg/dL; CREATININE 0.9 mg/dL (0.6-1.3); GFR - MDRD 95 (>89); GLUCOSE 294 mg/dL (74-104); HDL CHOLESTEROL 50 mg/dL; LDL CHOLESTEROL,CALCULATED 65 mg/dL; LDL/HDL RATIO 1.3 (<3.6); POTASSIUM 4.4 mmol/L (3.5-4.5); SODIUM 134 mmol/L (135-145); TOTAL PROTEIN 7.3 g/dL (6.4-8.9); TRIGLYCERIDES 83 mg/dL (48-352); VLDL CHOLESTEROL 17 mg/dL
[2023-09-05 12:44] LABS: ESTIMATED AVERAGE GLUCOSE 166 mg/dL (70-100); HEMOGLOBIN A1c% 7.4 % (4.27-6.07)
[2023-09-05 17:54] LABS: CREATININE,URINE 254.7 mg/dL; MICROALBUM/CREATININE RATIO,UR 4.7 ug/mg (<30.0); MICROALBUMIN,URINE 1.2 mg/dL
== END 2023-09-05 10:01 | disposition home or self-care (01) ==
LOC: LAB.N 10:00
PROVIDERS: ATTEND Nurse Practitioner
DX: E10.9 Type 1 diabetes mellitus without complications (principal); Z13.220 Encounter for screening for lipoid disorders; Z79.4 Long term (current) use of insulin; F41.9 Anxiety disorder, unspecified
CPT/HCPCS: 36415; 80050; 80061; 82043; 82570; 83036; 83721